=== PATIENT | female | born 2000 | race Caucasian/White ===

== ENCOUNTER 2020-07-14 13:37 | Emergency (ER) | payer OTHER ==
[~2020-07-14 13:37] MED LIST: IBUPROFEN600 MG PO; KEFLEX CAP 500500 MG PO
[2020-07-14 14:28] LABS: HEMOGLOBIN 15.5 gm/dl (12.3-15.3); RED BLOOD COUNT 5.25 M/UL (4.00-5.10); WHITE BLOOD COUNT 7.3 K/UL (4.5-11.0)
[2020-07-14 15:39] LABS: BUN/CREATININE RATIO 32 (0-10)
[2020-07-14] MEDS ORDERED: CEPHALEXIN500 MG PO (16:06)
== END 2020-07-14 16:41 | disposition home or self-care (01) ==
LOC: ER1 13:37
PROVIDERS: Physician Assistant
DX: E10.9 Type 1 diabetes mellitus without complications (principal); N39.0 Urinary tract infection, site not specified; E78.5 Hyperlipidemia, unspecified; Z79.4 Long term (current) use of insulin; F17.290 Nicotine dependence, other tobacco product, uncomplicated
CPT/HCPCS: 80053; 81001; 82009; 82962; 83036; 84703; 85025; 99284; J7030